=== PATIENT | female | born 1960 | race Caucasian/White ===

== ENCOUNTER 2023-04-29 11:45 | Inpatient (IN) | payer OTHER ==
[~2023-04-29] VITALS: Ht 165.1 cm; Wt 34.1 kg
[2023-04-29 15:06] LABS: BASOPHILS % 0.7 % (0.0-2.0); EOSINOPHILS % 0.9 % (0.0-5.0); HEMATOCRIT. 44.1 % (36.0-48.0); HEMOGLOBIN. 14.5 g/dL (12.0-16.0); LYMPHOCYTES % 22.4 % (20.0-50.0); MEAN CORPUSCULAR HEMOGLOBIN 27.9 pg (28.0-32.0); MEAN CORPUSCULAR HGB CONC 32.7 g/dL (31.0-37.0); MEAN CORPUSCULAR VOLUME 85.1 fL (81.0-99.0); MEAN PLATELET VOLUME 8.2 fl (7.4-10.4); MONOCYTES % 6.6 % (2.0-8.0); NEUTROPHILS % 69.4 % (40.0-76.0); PLATELET 281 x1000/uL (130-400); RED BLOOD CELL COUNT 5.19 mill/uL (4.2-5.4); RED CELL DISTRIBUTION WIDTH 14.5 % (11.6-14.6); WHITE BLOOD COUNT 7.1 x1000/uL (4.5-11.0)
[2023-04-29 15:11] LABS: PROTHROMBIN TIME 10.6 sec (9.6-11.0)
[2023-04-29 15:29] LABS: ALANINE AMINOTRANSFERASE 13 IU/L (10-49); ALBUMIN 4.2 g/dL (3.2-4.8); ASPARTATE AMINOTRANSFERASE 20 IU/L (<34); BILIRUBIN TOTAL 1.1 mg/dL (0.1-1.0); CALCIUM 9.4 mg/dL (8.7-10.4); CARBON DIOXIDE 29 mEq/L (21-32); CHLORIDE 109 mEq/L (98-107); CREATININE 0.7 mg/dL (0.6-1.0); GLUCOSE 98 mg/dL (70-105); POTASSIUM 4.7 mEq/L (3.5-5.1); SODIUM 142 mEq/L (136-145); UREA NITROGEN BLOOD 12 mg/dL (9-23)
[2023-04-29 15:38] LABS: ETHANOL BLOOD < 10 mg/dL (<10)
[2023-04-29 20:00] VITALS: BP 150/62; PULSE 80; RESP 18; TEMP 99.1
[2023-04-29] MEDS ORDERED: IOHEXOL-350 100 ML BOTTLE ONE (23:18)
[2023-04-29] MEDS ORDERED: CLONIDINE 0.1MG TABLET PO PRN (23:30)
[2023-04-29] MEDS ORDERED: ACETAMINOPHEN 325MG TABLET PO PRN (23:30)
[2023-04-30] VITALS: BP_SYST 128; BP_SYST 150; BP_DIAS 46; BP_DIAS 62; PULSE 73; PULSE 80; RESP 18; TEMP 97.2; TEMP 99.1
[2023-04-30 00:04] VITALS: BP 150/62; PULSE 80; RESP 18; TEMP 98.2
[2023-04-30 04:00] VITALS: BP 101/46; PULSE 67; RESP 18; TEMP 97.6
[2023-04-30 08:00] VITALS: BP 133/57; PULSE 64; RESP 18; TEMP 97.9
[2023-04-30 08:44] LABS: BASOPHILS % 0.7 % (0.0-2.0); EOSINOPHILS % 1.3 % (0.0-5.0); HEMATOCRIT. 40.7 % (36.0-48.0); HEMOGLOBIN. 13.9 g/dL (12.0-16.0); LYMPHOCYTES % 21.5 % (20.0-50.0); MEAN CORPUSCULAR HEMOGLOBIN 28.9 pg (28.0-32.0); MEAN CORPUSCULAR HGB CONC 34.3 g/dL (31.0-37.0); MEAN CORPUSCULAR VOLUME 84.4 fL (81.0-99.0); MEAN PLATELET VOLUME 8.8 fl (7.4-10.4); MONOCYTES % 6.3 % (2.0-8.0); NEUTROPHILS % 70.2 % (40.0-76.0); PLATELET 260 x1000/uL (130-400); RED BLOOD CELL COUNT 4.81 mill/uL (4.2-5.4); RED CELL DISTRIBUTION WIDTH 14.6 % (11.6-14.6); WHITE BLOOD COUNT 5.8 x1000/uL (4.5-11.0)
[2023-04-30 08:55] LABS: CALCIUM 8.9 mg/dL (8.7-10.4); CARBON DIOXIDE 27 mEq/L (21-32); CHLORIDE 106 mEq/L (98-107); CREATININE 0.6 mg/dL (0.6-1.0); GLUCOSE 95 mg/dL (70-105); POTASSIUM 3.9 mEq/L (3.5-5.1); SODIUM 142 mEq/L (136-145); UREA NITROGEN BLOOD 11 mg/dL (9-23)
[2023-04-30] MEDS: PANTOPRAZOLE SODIUM 40 MG/VIAL IV SCH (09:34)
[2023-04-30] MEDS: ENOXAPARIN 40MG/0.4ML SYR SUBCUT SCH (09:35)
[2023-04-30 12:00] VITALS: BP 122/71; PULSE 77; RESP 18; TEMP 96.8
[2023-04-30 16:00] VITALS: BP 140/65; PULSE 58; RESP 18; TEMP 97.7
[2023-05-01 08:00] VITALS: BP 143/67; PULSE 73; RESP 16; TEMP 96.5
[2023-05-01] MEDS: PANTOPRAZOLE SODIUM 40 MG/VIAL IV SCH (08:36)
[2023-05-01] MEDS: ENOXAPARIN 40MG/0.4ML SYR SUBCUT SCH (08:36)
[2023-05-01] MEDS ORDERED: ASPIRIN 81MG TABLET PO SCH (09:00)
[2023-05-01 10:54] VITALS: BP 143/67; PULSE 73; TEMP 96.5; O2SAT 99
[2023-05-01 12:00] VITALS: BP 137/63; PULSE 70; RESP 15; TEMP 97.3
[2023-05-01] MEDS ORDERED: ATOR10TA MT (17:23)
[2023-05-02] MEDS ORDERED: FAMOTIDINE 20MG/2ML VIAL IV SCH (09:00)
== END 2023-05-01 12:30 | disposition home or self-care (01) | DRG 72 ==
LOC: ER 12:05 → EDBEDREQ 15:08 → 6WST 15:40 → EDBEDREQ 15:42 → EDBEDREQTM 15:42
PROVIDERS: ADMIT Internal Medicine; ATTEND Internal Medicine
DX: G93.40 Encephalopathy, unspecified (principal); G45.4 Transient global amnesia; E78.5 Hyperlipidemia, unspecified; I10 Essential (primary) hypertension; F41.9 Anxiety disorder, unspecified; Z63.4 Disappearance and death of family member; Z79.82 Long term (current) use of aspirin; Z79.899 Other long term (current) drug therapy
CPT/HCPCS: 36415; 70496; 70498; 71045; 80048; 80053; 80061; 80320; 85025; 93005; 97161; 97165; 99285; C9113; J1650; Q9967; G0480